=== PATIENT | female | born 1970 | race Caucasian/White ===

== ENCOUNTER 2020-08-01 19:08 | Emergency (ER) | payer BC ==
[~2020-08-01] VITALS: Ht 165.1 cm; Wt 77.1 kg
--- NOTE | 2020-08-01 19:15 | NUR ---
BIBSELF C/O MIDEPIGASTRIC PAIN X2 DAYS. AAOX4. VITAL SIGNS STABLE. RESPIRATIONS EVEN AND UNLABORED. AMBULATORY WITH STEADY GAIT. NO ACUTE DISTRESS NOTED AT THIS TIME. WILL CONTINUE TO MONITOR
[2020-08-01] MEDS ORDERED: ONDANSETRON HCL/PF 4 MG/2 ML VIAL ONE (19:35)
[2020-08-01] MEDS ORDERED: MORPHINE SULFATE INJ 4 MG/ML DISP.SYRIN ONE (19:35)
--- NOTE | 2020-08-01 19:45 | NUR ---
IV INITIATED RAC 20G. LABS DRAWN FROM SITE. RECHECKER AT BEDSIDE FOR COLLECTION. IV INTACT AND PATENT, PLACED ON SALINE LOCK
--- NOTE | 2020-08-01 19:50 | NUR ---
URINE COLLECTED, CALLED LAB FOR REACH TRUCK OPERATOR
[2020-08-01 19:52] LABS: BASOPHILS % (AUTO) 0.7 % (0.0-2.0); EOSINOPHILS % (AUTO) 0.8 % (0.0-6.0); HEMATOCRIT 37 % (33-45); HEMOGLOBIN 12.1 g/dL (11.5-14.8); LYMPHOCYTES # (AUTO) 0.5 /CMM (0.8-4.8); LYMPHOCYTES % (AUTO) 14.5 % (20.0-44.0); MEAN CORPUSCULAR HGB CONC 33 g/dl (31.0-36.0); MEAN CORPUSCULAR VOLUME 88 fL (82-100); MONOCYTES # (AUTO) 0.2 /CMM (0.1-1.30); MONOCYTES % (AUTO) 5.4 % (2.0-12.0); NEUTROPHILS # (AUTO) 2.9 /CMM (1.8-8.9); NEUTROPHILS % (AUTO) 78.6 % (43.0-81.0); PLATELET COUNT (AUTO) 154 /CMM (150-450); RED BLOOD CELL COUNT(AUTO) 4.19 MIL/uL (4.0-5.2); WHITE BLOOD COUNT (AUTO) 3.7 K/uL (4.3-11.0)
[2020-08-01] MEDS ORDERED: ONDANSETRON HCL/PF 4 MG/2 ML VIAL IVP ONE (20:00)
[2020-08-01] MEDS ORDERED: IV NS 0.9% 1,000 ML BAG IV ONE (20:00)
[2020-08-01] MEDS ORDERED: MORPHINE SULFATE INJ 2 MG/ML DISP.SYRIN IV ONE (20:00)
[2020-08-01 20:01] LABS: CALCIUM, SERUM 9.7 mg/dL (8.5-10.1); CREATININE 0.7 mg/dL (0.6-1.3); POTASSIUM 3.8 mmol/L (3.5-5.1)
[2020-08-01] MEDS ORDERED: IOHEXOL-300 100 ML VIAL IV ONE (20:06)
[2020-08-01] MEDS ORDERED: IV NS 0.9% 250 ML IV ONE (20:06)
[2020-08-01 20:07] LABS: BILIRUBIN,DIRECT 0.1 mg/dL (0.0-0.2); BILIRUBIN,TOTAL 0.4 mg/dL (0.2-1.0); TOTAL PROTEIN, SERUM 7.3 g/dL (6.4-8.2)
[2020-08-01 20:08] LABS: BILIRUBIN,URINE Negative (NEGATIVE); COLOR,URINE YELLOW (YELLOW); LEUKOCYTE ESTERASE ,URINE Moderate (NEGATIVE); NITRITE, URINE Positive (NEGATIVE); PH,URINE 5.5 (5.0-8.0); PROTEIN,URINE Negative (NEGATIVE); UGLUCOSE Negative (NEGATIVE); UROBILINOGEN,URINE 0.2 EU/dL (0.2)
--- NOTE | 2020-08-01 20:10 | NUR ---
Pt to CT via bandar
[2020-08-01 20:13] LABS: BACTERIA,URINE 3+ /HPF (None Seen); SQUAMOUS EPITHELIAL CELL,UR Few /HPF (None Seen); WBC,URINE 21-50 /HPF (0-3)
--- NOTE | 2020-08-01 20:25 | NUR ---
PT RETURNED FROM CT
[2020-08-01] MEDS ORDERED: SULFAMETH/TRIMETH 800/160 MG 1 UDTAB TABLET ONE (20:28)
[2020-08-01] MEDS ORDERED: SULFAMETH/TRIMETH 800/160 MG 1 UDTAB TABLET PO ONE (20:30)
[2020-08-01] MEDS ORDERED: SULF1TAB48 PO (20:38)
[2020-08-01 22:08] VITALS: BP 142/97
--- NOTE | 2020-08-01 22:08 | NUR ---
Patient discharged to home in stable condition. Written and verbal after care instructions given. Patient verbalizes understanding of instruction.IV removed. Catheter intact and site benign. Pressure and 4x4 applied to site. No bleeding noted.Pt ambulatory with a steady gait
--- NOTE | 2020-08-02 11:00 | NUR ---
"SS Consult : SS Consult for homelessness. The pt. is a 50-year old female at [facility] ED seeking medical Tx. for stomach pain, per pt. SW met with pt. is waiting room. The pt. appears well-groomed. Pt. is alert & oriented x 4. Pt. makes good eye contact. Pt. has 2 luggage with her and is ambulating with a cane. Patient requesting senior care placement. The pt. stated that she lives at [[address] [place] [address] TEL: [phone]]. Patient stated she flew into [place] on 07/31/2020 for a friends . Per pt. she has been staying with her friend, Erika and refused to provide SW with phone number. Patient states her friend cannot pick her up or continue to house her because she has a lot of people staying in her house already. SW offered to call patients son, Eleazar Abreu [phone] to make plan for pt. to return to [place] as pt. states she only had a one-way ticket and only has $30 on her. Patient refused stating her 2 sons are experiencing financial hardships and cannot help her. SW explored if pt. has any other friends or family in [place] that may be able to house her or help in any way. Pt. stated she does not have anyone else in [place]. Noted. Per pt. she receives food stamps and [employer]. Pt. denies any drug or alcohol use. Pt. denies any mental health issues. Pt. denies SI/ HI and denies hallucinations. Plan: SW provided pt. with senior care placement at: [facility] [phone]. SW provide pt. with hot meal, bus pass, and printed bus directions to senior care. Pt. expressed understanding and was agreeable. Pt. signed homeless waiver and it was placed in the pt.s chart. SW provided pt. with the following homeless resources and pt. accepted them: Substance Abuse resources provided included: [facility] Substance Abuse Self-Helpline ([facility]) ; CRI -HELP [address] [facility]. [place] [id number] ; [facility] [address] [place] [phone] ; [facility] Rehabilitation Program [address] [place]. [place] [id number] ; [facility] [address] [facility] [address] ; [facility] Centers [address] [facility] [address] ; [facility] [address] [facility] [address] [phone] ; [facility] Substance Abuse Helpline(SAS)[facility] ; [facility] ; [facility]; [facility] [place]; [facility] [place]; [facility] Hermes Jaimes; [facility] [place]; [place]; [facility] [place]; [facility] [place]; Alcoholics Anonymous -SFV; Ev-Them-Zyazioc ; Marijuana Anonymous -SFV; Narcotics Anonymous www.na.org; Year-round shelters: [place] [facility] [address] [place], [place] [phone] ; [facility] [place] [address] [place] [address]; [place] [facility] Ntbwpta[address]81 [facility] [address] Winter Shelters: Jocelyn Sheppard Provider: [facility] [place] Address: [address] [place], [address] # of Beds: 47 Population Served: Coed SPA 6 | [facility] Maribell Danya Valarie Provider: [facility] Last Address: [address] [facility], [address] # of Beds: 66 Population Served: Cassyd Robert [place] Provider: First to Serve Address: [address] [facility], [address] # of Beds: 56 Population Served: Gracia Ramon Sheppard Provider: [facility] Address: [address] [facility], [address] # of Beds: 49 Population Served: Coed SPA 8 | [place] Provider: First to Serve Address: [address] [facility]. [place], [address] # of Beds: 37 Population Served: Gracia Hygiene: [facility]: [address] [place] ; [facility] [address] [facility] ; [facility] [address] [place] . Food Resources: [place] [facility] at [facility]- [address] [facility]; Meet Each Need with Dignity ([facility]) [address] [facility]; [facility] Food Pantry [address] [facility]; [facility] [address] [facility] Mental Health resources provided: [facility] [address] [place], [place] [phone] ; [facility] [address] [facility] [address], [place] [address] ; Emily Luevano [facility] [address] [place] [address] ; [facility] [address] [place], [place] [id number] Healthcare Clinics: [facility] [address] [facility], [address] [place]. [place] ; [facility] [address] [facility] [address] [place] [address]; [facility] [place] [address] [address] [facility] [place] [address] [phone]) [phone] Counseling[facility] [address], [place] [address] (Specializes in in-depth psychotherapy for emotional distress: anxiety, depression, interpersonal conflicts, life transitions, childhood abuse) [facility] [address] [place] [address] (Assist with solving problem marital difficulties, separation & divorce, aging parents, & grief, chronic & terminal illness) [facility] [address] [place] [address] (Deal with loss & grief, anxiety, marital difficulties) Homebound/Mental Health Services [address] [facility] [address] [place] [address] (Provide in-home mental services to people who are incapable of leaving their homes) [facility] Elder[facility] Senior Service/Resource Center [address] [facility] [place] [address] [facility] [address] [place], [place] [address] PSYCHIATRIC OUTPATIENT SERVICES [facility] Partial Hospitalization and Intensive Outpatient Program (Managed Care and [place] Only)[address] [facility] [phone] [facility] Partial Hospitalization and Outpatient Gfceasl[address]. [address] [place], [place] [phone] [facility] Partial Hospitalization and Outpatient Twvhohn[address] [facility]. [place], [place] [phone] [facility] Mental Health Center Luv31953 [facility]. [address] [place], [place] [phone] [facility] Partial Hospitalization and Outpatient Gzvmcuk42161 Emelita [facility] Hermes [place], [phone] "
== END 2020-08-01 22:09 | disposition home or self-care (01) ==
LOC: ER 19:11
DX: N39.0 Urinary tract infection, site not specified (principal); I10 Essential (primary) hypertension; Z86.73 Personal history of transient ischemic attack (TIA), and cerebral infarction without residual deficits; Z88.0 Allergy status to penicillin; Z88.6 Allergy status to analgesic agent
CPT/HCPCS: 36415; 74177; 80048; 80076; 81001; 83690; 85025; 96361; 96374; 96375; 99285; J2270; J2405; J7030; J7050; Q9967; 87086-TC